=== PATIENT | male | born 1950 | race African-American/Black ===

== ENCOUNTER 2021-11-13 05:37 | Day surgery (SDC) | payer MEDICARE, BC ==
[~2021-11-13] VITALS: Ht 172.7 cm; Wt 92.0 kg
[~2021-11-13 05:37] MED LIST: ALLO300T2 PO; AMLO10TA80 PO; CALC-1139 PO; FERR325T6 PO; HYDR-4135 PO; INSU100I13 SQ; INSU100I22 SQ; NEBI20TA2 PO; SEMA7TAB2 PO; SEVE800T8 PO
[2021-11-13 06:17] LABS: BASOPHILS % 0.6 % (0.0-2.0); EOSINOPHILS % 1.4 % (0.0-5.0); HEMATOCRIT. 34.5 % (42.0-52.0); LYMPHOCYTES % 11.1 % (20.0-50.0); MEAN CORPUSCULAR HEMOGLOBIN 26.7 pg (28.0-32.0); MEAN CORPUSCULAR VOLUME 83.6 fL (80.0-94.0); MEAN PLATELET VOLUME 6.9 fl (7.4-10.4); MONOCYTES % 10.1 % (2.0-8.0); NEUTROPHILS % 76.8 % (40.0-76.0); PLATELET 273 x1000/uL (130-400); RED BLOOD CELL COUNT 4.12 mill/uL (4.7-6.1); RED CELL DISTRIBUTION WIDTH 17.9 % (11.6-14.6)
[2021-11-13] MEDS ORDERED: SODIUM CHLORIDE 0.9% 500 ML IV SCH (06:30)
[2021-11-13 06:45] LABS: PARTIAL THROMBOPLASTIN TIME 29.7 sec (23.4-31.0); PROTHROMBIN TIME 10.5 sec (9.6-11.0)
[2021-11-13] MEDS ORDERED: BACITRACIN 15GM TUBE TOP ONE (07:15)
[2021-11-13] MEDS ORDERED: HEPARIN SODIUM 1,000 UNIT/1ML VIAL IV ONE (07:15)
[2021-11-13] MEDS ORDERED: THROMBIN (BOVINE) 5000 UNITS/VIAL TOP ONE (07:15)
[2021-11-13] MEDS ORDERED: BUPIVACAINE HCL/PF 0.5% (5MG/ML) 10ML ONE (07:15)
[2021-11-13] MEDS ORDERED: POLYMYXIN B SULFATE 500000 UNITS/VIAL ONE (07:15)
[2021-11-13] MEDS ORDERED: LIDOCAINE HCL 1% 10 MG/ML 10ML VIAL ONE ×2 (07:15→07:34)
[2021-11-13] MEDS ORDERED: PROPOFOL 200MG/20ML VIAL IV ONE ×2 (07:35→07:45)
[2021-11-13] MEDS ORDERED: MIDAZOLAM HCL 2 MG/2 ML VIAL ONE (07:35)
[2021-11-13] MEDS ORDERED: FENTANYL CITRATE/PF 50MCG/ML 2ML VIAL ONE (07:35)
[2021-11-13] MEDS ORDERED: LABETALOL 5MG/ML SYR 20 MG/4 ML SYRINGE IV PRN (08:30)
[2021-11-13] MEDS ORDERED: HYDROMORPHONE HCL/PF 2MG/ML CPJ IV PRN (08:30)
[2021-11-13] MEDS ORDERED: MEPERIDINE HCL/PF 25MG/ML CPJ IV PRN (08:30)
[2021-11-13] MEDS ORDERED: ONDANSETRON HCL 4MG/2ML INJ IV PRN (08:30)
[2021-11-13] MEDS ORDERED: HEPARIN SODIUM 1,000 UNIT/1ML VIAL IV NR (09:45)
== END 2021-11-13 11:45 | disposition home or self-care (01) ==
LOC: OR 05:37
PROVIDERS: ATTEND Surgery Vascular Surgery
DX: I12.0 Hypertensive chronic kidney disease with stage 5 chronic kidney disease or end stage renal disease (principal); N18.6 End stage renal disease; E11.22 Type 2 diabetes mellitus with diabetic chronic kidney disease; E66.9 Obesity, unspecified; K21.9 Gastro-esophageal reflux disease without esophagitis; M10.9 Gout, unspecified; M19.90 Unspecified osteoarthritis, unspecified site; Z79.84 Long term (current) use of oral hypoglycemic drugs; Z79.899 Other long term (current) drug therapy; Z98.890 Other specified postprocedural states; Z20.822 Contact with and (suspected) exposure to COVID-19
CPT/HCPCS: 36415; 37607; 80048; 85025; 85610; 85730; 87426; 93005; C9803; J1644; J2250; J2704; J3010; J3490

== ENCOUNTER → 2021-11-21 | Day surgery (SDC) | payer MEDICARE, BC ==
[~2021-11-21] VITALS: Ht 172.7 cm; Wt 91.6 kg
[~2021-11-21] MED LIST changes: +BACITRACIN 15GM TUBE TOP ONE; +BUPIVACAINE HCL/PF 0.5% (5MG/ML) 10ML ONE; +FENTANYL CITRATE/PF 50MCG/ML 2ML VIAL ONE; +HEPARIN SODIUM 1,000 UNIT/1ML VIAL IV NR; +HEPARIN SODIUM 1,000 UNIT/1ML VIAL IV ONE; +HYDROMORPHONE HCL/PF 2MG/ML CPJ IV PRN; +LABETALOL 5MG/ML SYR 20 MG/4 ML SYRINGE IV PRN; +LIDOCAINE HCL 1% 10 MG/ML 10ML VIAL ONE; +MIDAZOLAM HCL 2 MG/2 ML VIAL ONE; +ONDANSETRON HCL 4MG/2ML INJ IV PRN; +POLYMYXIN B SULFATE 500000 UNITS/VIAL ONE; +PROPOFOL 200MG/20ML VIAL IV ONE; +SODIUM CHLORIDE 0.9% 500 ML IV ONE; +THROMBIN (BOVINE) 5000 UNITS/VIAL TOP ONE
[2021-11-21 09:54] LABS: BASOPHILS % 0.8 % (0.0-2.0); EOSINOPHILS % 1.9 % (0.0-5.0); HEMATOCRIT. 33.1 % (42.0-52.0); HEMOGLOBIN. 10.8 g/dL (14.0-18.0); LYMPHOCYTES % 11.4 % (20.0-50.0); MEAN CORPUSCULAR VOLUME 82.9 fL (80.0-94.0); MEAN PLATELET VOLUME 7.4 fl (7.4-10.4); MONOCYTES % 10.5 % (2.0-8.0); NEUTROPHILS % 75.4 % (40.0-76.0); PLATELET 303 x1000/uL (130-400); RED BLOOD CELL COUNT 3.99 mill/uL (4.7-6.1); RED CELL DISTRIBUTION WIDTH 16.9 % (11.6-14.6)
[2021-11-21 10:05] LABS: PARTIAL THROMBOPLASTIN TIME 32.3 sec (23.4-31.0); PROTHROMBIN TIME 10.8 sec (9.6-11.0)
[2021-11-21] MEDS: MEPERIDINE HCL/PF 25MG/ML CPJ IV PRN ×2 (12:53→13:29)
[2021-11-21 13:29] VITALS: BP 162/89
== END | disposition home or self-care (01) ==
LOC: OR 09:09
PROVIDERS: ATTEND Surgery Vascular Surgery
DX: I12.0 Hypertensive chronic kidney disease with stage 5 chronic kidney disease or end stage renal disease (principal); N18.6 End stage renal disease; E11.22 Type 2 diabetes mellitus with diabetic chronic kidney disease; E66.9 Obesity, unspecified; Z20.822 Contact with and (suspected) exposure to COVID-19; Z79.899 Other long term (current) drug therapy; Z98.890 Other specified postprocedural states; Z79.4 Long term (current) use of insulin
CPT/HCPCS: 36415; 37607; 80048; 85025; 85610; 85730; 87426; C9803; J1644; J2175; J2250; J2704; J3010; J3490; J7030